=== PATIENT | male | born 1990 | race Caucasian/White ===

== ENCOUNTER 2018-11-29 10:28 | Emergency (ER) | payer MEDICAID ==
[~2018-11-29] VITALS: Ht 175.3 cm; Wt 82.0 kg
[2018-11-29 14:20] VITALS: BP 110/60
== END 2018-11-29 14:58 | disposition home or self-care (01) ==
LOC: ER 10:28
DX: Z00.00 Encounter for general adult medical examination without abnormal findings (principal); Z59.0 Homelessness; F31.9 Bipolar disorder, unspecified
CPT/HCPCS: 99283